=== PATIENT | male | born 1955 | race Caucasian/White ===

== ENCOUNTER 2018-10-01 05:42 | Emergency (ER) | payer OTHER ==
[2018-10-01 05:49] VITALS: BP 136/91; PULSE 56; TEMP 97.8; BMI 21.7
[2018-10-01] MEDS ORDERED: diphenhydrAMINE HCL 50 MG CAPSULE ONE (05:51)
[2018-10-01] MEDS ORDERED: predniSONE 20 MG TABLET (UD) ONE (05:51)
--- NOTE | 2018-10-01 05:51 | PDOC ---
History of Present Illness - General Chief Complaint: Rash Stated Complaint: EXPOSED TO MEASLES 2 WEEKS AGO, RASH/ITCHING Time Seen by Provider: 10/01/18 05:44 History Source: Patient Exam Limitations: No Limitations - History of Present Illness Initial Comments: 10/01/18 05:51 This is a 62-year-old male who comes in complaining of a itchy rash. Patient said that he woke up this morning had some abdominal pain felt nauseous and then developed an itchy rash. Patient said last night for dinner he had some seaweed that he has not had in the past otherwise no new foods lotion screams ointments or medications. Patient was concerned because he had been exposed to measles a few weeks ago. Patient however had no cough, fevers or any other symptoms and did not look ill. Patient had all of his childhood immunizations as far as he knows. Allergies: as per nursing notes Past Medical History: none Social history: Lives with family. No smoking. No alcohol. No illicit drugs. Surgical history: None General: No fevers or chills, no weakness, no weight loss HEENT: No change in vision. No sore throat,. No ear pain CardioVascular: no chest discomfort. No shortness of breath Respiratory:No cough, or wheezing. Gastrointestinal: no nausea, vomiting, diarrhea or constipation, No rectal bleeding Genitourinary: No dysuria, hematuria, or frequency Musculoskeletal: No joint or muscle pain or swelling Neurologic: No headache, vertigo, dizziness or loss of consciousness Psychiatric: nor depression Skin: No rashes or easy bruising Endocrine: no increased thirst or abnormal weight change Allergic: no skin or latex allergy All other systems reviewed and normal GENERAL: The patient is awake, alert, and fully oriented, in no acute distress. HEAD: Normal with no signs of trauma. EYES: Pupils equal, round and reactive to light, extraocular movements intact, sclera anicteric, conjunctiva clear. EXTREMITIES:atraumatic, Normal range of motion, no edema. NEUROLOGICAL: Normal speech, normal gait. PSYCH: Normal mood, normal affect. SKIN: Warm, Dry, normal turgor, is a fine Maller rash with areas of confluence to primarily back but also some on the neck arms and face. Assessment and plan: This is 62-year-old male with a pruritic type rash most likely secondary to a food ALLERGY as he did have the stomachache when he woke up. Patient was reassured that this is not measles as he has no other symptoms and was discharged home. After being given Benadryl and prednisone and Medrol Dosepak sent to his pharmacy. Past History - Past Medical History Allergies/Adverse Reactions: Allergies Allergy/AdvReac Type Severity Reaction Status Date / Time No Known Allergies Allergy Verified 10/01/18 05:44 Home Medications: Ambulatory Orders Methylprednisolone [Medrol Dose Hemant] 4 mg PO ASDIR #21 tablet 10/01/18 *DC/Admit/Observation/Transfer Diagnosis at time of Disposition: Allergic reaction Qualifiers: Encounter type: initial encounter Qualified Code(s): T78.40XA - Allergy, unspecified, initial encounter - Discharge Dispostion Disposition: HOME Condition at time of disposition: Stable Decision to Admit order: No - Prescriptions Prescriptions: Methylprednisolone [Medrol Dose Hemant] 4 mg PO ASDIR #21 tablet - Referrals - Patient Instructions Additional Instructions: For the itching U can take Benadryl 1 or 2 tablets every 4-6 hours if needed. In addition to the Benadryl I sent a prescription for a short steroid taper to your pharmacy get it filled and take it as per the Dosepak. Return to the emergency department immediately with ANY new, persistent or worsening symptoms. Continue any medications as previously prescribed by your physician. You should follow up with your primary doctor as soon as possible regarding today's emergency department visit. . Please make sure your doctor reviews the results of your emergency evaluation. Thank you for coming to the Emergency Department today for your care. It was a pleasure to see you today. Please note that your evaluation is INCOMPLETE until you follow-up with your doctor. - Post Discharge Activity
[2018-10-01] MEDS ORDERED: diphenhydrAMINE HCL 50 MG CAPSULE PO ONE (05:59)
[2018-10-01] MEDS ORDERED: predniSONE 20 MG TABLET (UD) PO ONE (06:00)
== END 2018-10-01 06:05 | disposition home or self-care (01) ==
LOC: FER 05:42
DX: T78.40XA Allergy, unspecified, initial encounter (principal)
CPT/HCPCS: 99281-25

== ENCOUNTER 2019-11-26 20:45 | Emergency (ER) | payer OTHER ==
--- OUTSIDE RECORDS SUMMARY | 2019-11-26 20:57 | XMS ---
:1955 Author Organization [facility] Support Name Relationship Address Phone UE Unavailable Unavailable Unavailable JASON LIMA [address] [facility] [place] [phone] [facility] [place] [address] Re-disclosure Warning The records that you are about to access may contain information from federally- assisted alcohol or drug abuse programs. If such information is present, then the following federally mandated warning applies: This information has been disclosed to you from records protected by federal confidentiality rules (42 CFR part 2). The federal rules prohibit you from making any further disclosure of this information unless further disclosure is expressly permitted by the written consent of the person to whom it pertains or as otherwise permitted by 42 CFR part 2. A general authorization for the release of medical or other information is NOT sufficient for this purpose. The Federal rules restrict any use of the information to criminally investigate or prosecute any alcohol or drug abuse patient.The records that you are about to access may contain highly sensitive health information, the redisclosure of which is protected by Article 27-F of the [facility] Public Health law. If you continue you may haveaccess to information: Regarding HIV / AIDS; Provided by facilities licensed or operated by the [facility] Office of Mental Health; or Provided by the [facility] Office for People With Developmental Disabilities. If such information is present, then the following [facility] mandated warning applies: This information has been disclosed to you from confidential records which are protected by state law. State law prohibits you from making any further disclosure of this information without the specific written consent of the person to whom it pertains, or as otherwise permitted by law. Any unauthorized further disclosure in violation of state law may result in a fine or penitentiary sentence or both. A general authorization for the release of medical or other information is NOT sufficient authorization for further disclosure. Insurance Providers Payer name Policy type Policy ID Covered Covered constitution party's Policy P chema / Coverage constitution party ID relationship to Luis Inf ormation type luis [facility] [id number] [facility] [id number] Results ID Date Data Source [id number] 11/15/2019 04:55:00 PM EDT [facility] Name Value Range Interpretation Description Data Sup porting Code Source(s) Document(s ) SARS [facility] coronavirus 2 RNA This lab was ordered by [facility] and reported by [facility]. Procedure
--- NOTE | 2019-11-26 21:25 | PDOC ---
History of Present Illness - General Chief Complaint: Laceration Stated Complaint: THUMB LACERATION Time Seen by Provider: 11/26/19 21:25 - History of Present Illness Initial Comments: 11/26/19 22:03 Pt presents to the ED complaining of small avulsion to his L thumb with a knife while cooking today. Denies other injuries. uncertain of last tetanus. presents to the ED because he was unable to stop the bleeding at home. 11/26/19 22:03 Past History - Medical History Allergies/Adverse Reactions: Allergies Allergy/AdvReac Type Severity Reaction Status Date / Time No Known Allergies Allergy Verified 11/26/19 20:53 Home Medications: Ambulatory Orders Loratadine [Claritin] 10 mg PO DAILY PRN 11/26/19 COPD: No Other medical history: ECZEMA - Immunization History Immunization Up to Date: Yes - Psycho-Social/Smoking History Smoking History: Never smoked Have you smoked in the past 12 months: No Review of Systems - Review of Systems Able to Perform ROS?: Yes Is the patient limited Bangladeshi proficient: No Integumentary: Yes: Other (thumb avulsion) *Physical Exam - Physical Exam 11/26/19 22:08 L thumb: .5 cm avulsion to tip of l thumb with venous oozing. No other injuries. Intact cap refil. No injury to the nail or nail bed. Medical Decision Making - Medical Decision Making 11/26/19 22:09 Pt presents to the ED complaining of very small and superficial soft tissue avulsion to the tip of his L thumb. irrigated in the sink with tap water for 5 minutes. bleeding controlled with surgicell. Wound bandaged and patient instructed to keep it clean and dry for 24 hours and to return to the ED for signs of infection. Discharge - Discharge Information Problems reviewed: Yes Clinical Impression/Diagnosis: Laceration Condition: Good Disposition: HOME - Admission No - Follow up/Referral - Patient Discharge Instructions Patient Printed Discharge Instructions: DI for Avulsion Laceration (Not Requiring Sutures) Additional Instructions: you came to the ED for a small avulsion (missing tissue) on your thumb. We cleaned the wound and used surgicell to stop the bleeding. we also gave you a tetanus shot in the ED. keep the bandage clean and dry for the next 24 hours. After that, you can remove the dressing and wash the wound gently with soap and water. If bleeding starts again, hold pressure for 15 minutes. Return to the ED for severe bleeding, redness and tenderness of your thumb or hand, fever, pus coming from the wound. - Post Discharge Activity
[2019-11-26] MEDS ORDERED: DIPHTH,PERTUSS(ACELL),TET 0.5 ML DISP.SYRIN IM ONE ×2 (21:46→21:51)
[2019-11-26 21:50] VITALS: BP 102/70; PULSE 80; BMI 20.3
== END 2019-11-26 21:56 | disposition home or self-care (01) ==
LOC: FER 20:45
PROC: 3E0234Z Introduction of Serum, Toxoid and Vaccine into Muscle, Percutaneous Approach (ICD-10-PCS; principal; 2019-11-26)
DX: S61.012A Laceration without foreign body of left thumb without damage to nail, initial encounter (principal)
CPT/HCPCS: 90715; 99284-25